=== PATIENT | female | born 1975 | race Caucasian/White ===

== ENCOUNTER 2016-12-09 18:51 | Emergency (ER) | payer OTHER ==
[~2016-12-09] VITALS: Ht 172.7 cm; Wt 64.5 kg
[2016-12-09 18:52] VITALS: Ht 172.7 cm; Wt 64.5 kg
[2016-12-09] MEDS ORDERED: ALBU8.5H3 INH (19:04)
[2016-12-09] MEDS ORDERED: D-ME473S18 PO (19:04)
[2016-12-09] MEDS ORDERED: IBUP-1542 PO (19:04)
[2016-12-09] MEDS ORDERED: CETI10CA PO (19:04)
--- NOTE | 2016-12-09 19:08 | ERD ---
ER Documentation Chief Complaint Date/Time DATE: 12/09/16 TIME: 19:06 Chief Complaint coughing x 7 days,she might B having bronchitis as per pt HPI 41-year-old female presents here in emergency department for complaints of cough for 7 days. Patient has been having dry cough, does not cough up any phlegm or blood. Patient has episodes of wheezing at times. Patient had fever, has not had any fever for the last 2 days. Patient does not have any chest pain. Patient does not have any sick contact. Patient has been having runny nose , nasal congestion with clear nasal discharge. Patient does not have any sore throat or ear pain. Patient has been taking NyQuil and DayQuil which helps some of her symptoms. ROS All systems reviewed and are negative except as per history of present illness. Medications Home Meds Active Scripts Albuterol Sulfate* (Proair HFA*) 8.5 Gm Hfa.aer.ad, 2 PUFF INH Q4H Y for WHEEZING AND SOB, #1 INHALER Prov:DOMINGUEZ ESTRADA NP 12/09/16 Cetirizine Hcl* (Zyrtec*) 10 Mg Capsule, 10 MG PO DAILY, #30 TAB.CHEW Prov:DOMINGUEZ ESTRADA NP 12/09/16 Ibuprofen* (Motrin*) 600 Mg Tab, 600 MG PO Q6H Y for PAIN AND OR ELEVATED TEMP, #30 TAB Prov:DOMINGUEZ ESTRADA NP 12/09/16 Dextromethorphan Hb-Promethazine Hcl (Promethazine DM Syrup) 473 Ml Syrup, 5 ML PO Q6H Y for COUGH, #4 OZ Prov:DOMINGUEZ ESTRADA NP 12/09/16 Allergies Allergies: Coded Allergies: No Known Allergy (Unverified , 12/09/16) PMhx/Soc Medical and Surgical Hx: pt denies Medical Hx, pt denies Surgical Hx Hx Alcohol Use: No Hx Substance Use: No Hx Tobacco Use: Yes FmHx Family History: No coronary disease, No diabetes, No other Physical Exam Vitals Vital Signs Date Time Temp Pulse Resp B/P Pulse Ox O2 Delivery O2 Flow Rate FiO2 12/09/16 18:52 97.6 65 22 109/64 99 Physical Exam GENERAL: The patient is well developed and appropriate for usual state of health, in no apparent distress.. HEENT: Atraumatic. Ears: Normal tympanic membrane, no erythema or bulging. No ear canal swelling. No ear discharge. Nose: Erythematous nasal turbinates with clear nasal discharge. Throat: oropharynx erythematous with postnasal drip. No tonsillar swelling or tonsillar exudates. No lymphadenopathy. CHEST: Clear to auscultation bilaterally. There are no rales, wheezes or rhonchi. HEART: Regular rate and rhythm. No murmurs, clicks, rubs or gallops. No S3 or S4. ABDOMEN: Soft, nontender and nondistended. Good bowel sounds. No rebound or guarding. No gross peritonitis. No gross organomegaly or masses. No Mcintyre sign or McBurney point tenderness. BACK: No midline or flank tenderness. EXTREMITIES: Equal pulses bilaterally. There is no peripheral clubbing, cyanosis or edema. No focal swelling or erythema. Full range of motion. Grossly neurovascularly intact. NEURO: Alert and oriented. Cranial nerves 2-12 intact. Motor strength in all 4 extremities with 5/5 strength. Sensation grossly intact. Normal speech and gait. SKIN: There is no apparent rash or petechia. The skin is warm and dry. HEMATOLOGIC AND LYMPHATIC: There is no evidence of excessive bruising or lymphedema. No gross cervical, axillary, or inguinal lymphadenopathy. Procedures/MDM Medical Decision Making: Patient symptoms are most likely consistent with acute bronchitis, which viral in origin. There is low suspicion for Pneumonia at this time since patients lungs sounds are clear, patient O2 saturation is normal and patient doesnt show any respiratory distress. Radiology exam is not indicated at this time. There is low suspicion for other cardiopulmonary emergencies at this time such as CHF, Pulmonary Embolism, Pneumothorax, or any other cardiopulmonary emergencies at this time. There is low suspicion for sepsis. Patient appears well and is hemodynamically stable. Fever is controlled with medicines. Disposition: Home. Condition: Stable Prescriptions: Promethazine DM, ibuprofen, Zyrtec, albuterol Instructions: Patient is advised to take medications as prescribed. Patient is advised to rest. Patient advised to increase fluid intake, do humidifier at home and if possible, do salt water gargles. Patient is advised that if symptoms are worse, shortness of breath, uncontrolled fever, stridor, vomiting, worst signs and symptoms to return to emergency department immediately. Otherwise, patient is advised to follow up with primary doctor in 5-7 days. Departure Diagnosis: Primary Impression: Acute bronchitis Bronchitis organism: unspecified organism Qualified Code: J20.9 - Acute bronchitis, unspecified organism Condition: Stable Patient Instructions: Bronchitis With Wheezing (Adult) DOMINGUEZ ESTRADA NP Dec 09, 2016 19:08
== END 2016-12-09 19:06 | disposition home or self-care (01) ==
LOC: E/R 18:51
DX: J20.9 Acute bronchitis, unspecified (principal); Z72.0 Tobacco use
CPT/HCPCS: 99284

== ENCOUNTER 2017-02-04 13:34 | Emergency (ER) | payer OTHER ==
[~2017-02-04] VITALS: Ht 172.7 cm; Wt 65.0 kg
[~2017-02-04 13:34] MED LIST: ALBU8.5H3 INH; CETI10CA PO; D-ME473S18 PO; IBUP-1542 PO
[2017-02-04 13:44] VITALS: Ht 172.7 cm; Wt 65.0 kg
--- NOTE | 2017-02-04 14:50 | ERD ---
ER Documentation Chief Complaint Date/Time DATE: 02/04/17 TIME: 14:45 Chief Complaint Flu like symptoms for 1 week, worst the last couple of days.motrin @ 1000. HPI Pleasant 42-year-old female presents to emergency department with cough, congestion, runny nose, body ache, headache, patient has been symptomatic for the last 7 days, reports worsening over the last 2-3 days. Patient's cough now is productive for green sputum, patient feels fatigued, with dizziness and shortness of breath with minimal activity. Patient has a positive history for smoking, smokes a half a pack of cigarettes a day, denies asthma, reports that she is exposed to mold where she is living and has been getting frequent respiratory infections. Patient denies chest pain, palpitations, nausea vomiting diarrhea. ROS All systems reviewed and are negative except as per history of present illness. Medications Home Meds Active Scripts Albuterol Sulfate* (Ventolin HFA*) 18 Gm Hfa.aer.ad, 2 PUFF INHALATION Q4H, #1 INHALER Prov:JAGDEEP,PEYTON 02/04/17 Dextromethorphan Hb-Promethazine Hcl (Promethazine DM Syrup) 473 Ml Syrup, 5 ML PO Q6H Y for COUGH, #4 OZ Prov:JAGDEEP,PEYTON 02/04/17 Azithromycin* (Azithromycin*) 250 Mg Tablet, 250 MG PO DAILY, #4 TAB Prov:JAGDEEP,PEYTON 02/04/17 Azithromycin* (Azithromycin*) 250 Mg Tablet, 500 MG PO ONCE, #1 TAB Prov:JAGDEEP,PEYTON 02/04/17 Albuterol Sulfate* (Proair HFA*) 8.5 Gm Hfa.aer.ad, 2 PUFF INH Q4H Y for WHEEZING AND SOB, #1 INHALER Prov:DOMINGUEZ ESTRADA CLIPMAN 12/09/16 Cetirizine Hcl* (Zyrtec*) 10 Mg Capsule, 10 MG PO DAILY, #30 TAB.CHEW Prov:DOMINGUEZ ESTRADA. CLIPMAN 12/09/16 Ibuprofen* (Motrin*) 600 Mg Tab, 600 MG PO Q6H Y for PAIN AND OR ELEVATED TEMP, #30 TAB Prov:DOMINGUEZ ESTRADA CLIPMAN 12/09/16 Dextromethorphan Hb-Promethazine Hcl (Promethazine DM Syrup) 473 Ml Syrup, 5 ML PO Q6H Y for COUGH, #4 OZ Prov:SEANDOMINGUEZ MCFADDEN Sylvia SMITH 12/09/16 Allergies Allergies: Coded Allergies: No Known Allergy (Unverified , 12/09/16) PMhx/Soc Hx Alcohol Use: No Hx Substance Use: No Hx Tobacco Use: Yes Physical Exam Vitals Vital Signs Date Time Temp Pulse Resp B/P Pulse Ox O2 Delivery O2 Flow Rate FiO2 02/04/17 13:44 98.9 89 18 106/68 95 Vital signs stable nursing notes reviewed Physical Exam Const: No acute distress Head: Atraumatic Eyes: Normal Conjunctiva, clear, no pallor or jaundice, EOMI, PERRLA ENT: Bilateral tympanic membranes dull, nasal mucosa edematous, mucus noted, turbinates +2, septum midline no bleeding points, no frontal sinus or maxillary sinus tenderness, pharynx injected, uvula rises and falls with pronation, tonsils not visualized Neck: Full range of motion..~ No meningismus. No cervical chain nodes Resp: Scattered rhonchi, clears with cough, coughs with deep breathing Cardio: Regular rate and rhythm, no murmurs Abd: Soft, non tender, non distended Skin: Back: Ext: Neur: Awake and alert Psych: Normal Mood and Affect Procedures/MDM Pleasant 42-year-old female presents to emergency department today for evaluation of cough, mucus production, shortness of breath and easily fatigued with ambulation. Patient has been symptomatic for the last 5-7 days. Symptoms worsening. Patient is a known smoker reports that she smokes a half a pack of cigarettes a day but has not been smoking recently, patient reports intermittent fevers, patient is afebrile at time of evaluation. Considered community-acquired pneumonia, clinical pneumonia, bronchitis secondary to smoking. I feel the patient is stable for discharge at this time. And will benefit from antibiotic therapy outpatient follow-up. I have discussed results , examination findings, the treatment plan with the patient and family present prior to discharge. Indications for emergent reevaluation, side effects of medication were also discussed. All questions were answered. Patient verbalizes understanding and agrees with plan of care. PEYTON GANNON Feb 04, 2017 14:50
[2017-02-04] MEDS ORDERED: AZIT250T6 PO ×2 (14:53)
[2017-02-04] MEDS ORDERED: ALBU18HF INHALATION (14:54)
[2017-02-04] MEDS ORDERED: D-ME473S18 PO (14:54)
== END 2017-02-04 17:19 | disposition home or self-care (01) ==
LOC: E/R 13:34
DX: R05 Cough (principal); R09.89 Other specified symptoms and signs involving the circulatory and respiratory systems; R51 Headache; R53.83 Other fatigue; R42 Dizziness and giddiness; R06.02 Shortness of breath; F17.210 Nicotine dependence, cigarettes, uncomplicated
CPT/HCPCS: 99284